=== PATIENT | female | born 1970 | race Caucasian/White ===

== ENCOUNTER 2016-08-14 12:03 | Outpatient (CLI) ==
[2014-07-04 16:40] VITALS: BMI 30.5
[2016-08-14 14:58] LABS: BILIRUBIN,URINE Negative (NEGATIVE); KETONES,URINE Negative (NEGATIVE); LEUKOCYTE ESTERASE ,URINE 1+ (NEGATIVE); NITRITE,URINE Positive (NEGATIVE); PROTEIN,URINE 2+ (NEGATIVE); URINE, BLOOD 3+ (NEGATIVE)
[2016-08-14 15:00] LABS: ADD URINE MICROSCOPIC YES
[2016-08-14 15:09] LABS: BACTERIA,URINE 4+ (NOT PRESENT)
== END 2016-08-14 12:04 | disposition home or self-care (01) ==
LOC: LAB 12:03
PROVIDERS: ATTEND Nurse Practitioner Family
DX: R30.0 Dysuria (principal)
CPT/HCPCS: 81001; 87086; 87186

== ENCOUNTER 2016-09-17 11:47 | Outpatient (CLI) ==
[2014-07-04 16:40] VITALS: BMI 30.5
[2016-09-17 13:25] LABS: BILIRUBIN,URINE Negative (NEGATIVE); KETONES,URINE Negative (NEGATIVE); LEUKOCYTE ESTERASE ,URINE 2+ (NEGATIVE); NITRITE,URINE Positive (NEGATIVE); PROTEIN,URINE 1+ (NEGATIVE); URINE, BLOOD 3+ (NEGATIVE)
[2016-09-17 13:29] LABS: ADD URINE MICROSCOPIC YES
[2016-09-17 13:33] LABS: BACTERIA,URINE TRACE (NOT PRESENT)
== END 2016-09-17 11:48 | disposition home or self-care (01) ==
LOC: LAB 11:47
PROVIDERS: ATTEND Nurse Practitioner Family
DX: R30.9 Painful micturition, unspecified (principal)
CPT/HCPCS: 81001; 87086; 87186